=== PATIENT | female | born 1940 | race Caucasian/White ===

== ENCOUNTER 2017-02-09 19:11 | Inpatient (IN) | payer MEDICARE ==
[~2017-02-09] VITALS: Ht 162.6 cm; Wt 57.8 kg
[~2017-02-09 19:11] MED LIST: ACID1TAB7 PO; AMLO5TAB2 PO; ATOR40TA78 PO; BLOOD PRESSURE; DIABETES MED; FENO145T32 PO; INSU100V8 SQ; LISI40TA PO; METF10002 PO; PHEN100C PO
[2017-02-09] MEDS ORDERED: SODIUM CHLORIDE 0.9% 1,000 ML IV ONE (19:28)
[2017-02-09] MEDS ORDERED: SODIUM CHLORIDE FLUSH 10ML SYR IVF ONE (19:30)
[2017-02-09 19:58] LABS: ASPARTATE AMINO TRANSFERASE 16 U/L (15-37); BLOOD UREA NITROGEN 23 mg/dL (7-18)
[2017-02-09 20:24] LABS: IS PT STATUS REG ER OR PRE ER? YES
[2017-02-09] MEDS: SODIUM CHLORIDE 0.9% 1,000 ML IV SCH (21:34)
[2017-02-09] MEDS ORDERED: DEXTROSE 50%, 50ML SYRINGE IVPush PRN (22:00)
[2017-02-09] MEDS ORDERED: PROMETHAZINE 25 MG/ML, 1ML IM PRN (22:00)
[2017-02-09] MEDS ORDERED: GLUCAGON 1 MG IM PRN (22:00)
[2017-02-09] MEDS ORDERED: DEXTROSE 4 GM TAB.CHEW PO PRN (22:00)
[2017-02-09] MEDS ORDERED: ONDANSETRON 2MG/ML, 2ML IVP PRN (22:00)
[2017-02-09] MEDS ORDERED: LABETALOL 5MG/ML, 20ML IV PRN (22:00)
[2017-02-09 22:23] LABS: IS PT STATUS REG ER OR PRE ER? YES
[2017-02-09 22:42] VITALS: BP 184/91
[2017-02-09 23:00] VITALS: BP 149/82
[2017-02-09] MEDS: ENOXAPARIN 40 MG/0.4 ML SQ SCH (23:27)
[2017-02-09] MEDS: PHENYTOIN 100 MG CAPSULE PO SCH (23:56)
[2017-02-10 01:46] VITALS: BP 153/77
[2017-02-10 04:29] LABS: BLOOD UREA NITROGEN 13 mg/dL (7-18)
[2017-02-10 04:35] LABS: IS PT STATUS REG ER OR PRE ER? NO
[2017-02-10 04:40] LABS: ASPARTATE AMINO TRANSFERASE 19 U/L (15-37)
[2017-02-10] MEDS: SODIUM CHLORIDE 0.9% 1,000 ML IV SCH (05:26)
[2017-02-10 06:46] VITALS: BP 173/92
[2017-02-10] MEDS: FENOFIBRATE 145 MG TABLET PO SCH (07:11)
[2017-02-10] MEDS: INSULIN ASPART 100 UNITS/ML, PEN SQ-INSULIN SCH ×4 (07:11→21:00)
[2017-02-10] MEDS: PHENYTOIN 100 MG CAPSULE PO SCH ×3 (07:11→21:21)
[2017-02-10] MEDS: LISINOPRIL 20 MG TABLET PO SCH (07:11)
[2017-02-10] MEDS: AMLODIPINE 5 MG TABLET PO SCH (07:11)
[2017-02-10] MEDS: SODIUM CHLORIDE FLUSH 10ML SYR IVF SCH ×2 (07:12→21:20)
[2017-02-10 15:00] VITALS: BP 149/80
[2017-02-10 19:46] VITALS: BP 147/82
[2017-02-10] MEDS ORDERED: CETIRIZINE 10 MG TABLET PO ONE (20:30)
[2017-02-10] MEDS ORDERED: ATORVASTATIN 40 MG TABLET PO SCH (21:00)
[2017-02-11] MEDS: PHENYTOIN 100 MG CAPSULE PO SCH ×2 (01:12→07:46)
[2017-02-11] MEDS: ENOXAPARIN 40 MG/0.4 ML SQ SCH (01:12)
[2017-02-11 01:13] VITALS: BP 149/79
[2017-02-11 07:00] VITALS: BP 168/94
[2017-02-11] MEDS: LISINOPRIL 20 MG TABLET PO SCH (07:46)
[2017-02-11] MEDS: AMLODIPINE 5 MG TABLET PO SCH (07:46)
[2017-02-11] MEDS: SODIUM CHLORIDE FLUSH 10ML SYR IVF SCH (07:46)
[2017-02-11] MEDS: FENOFIBRATE 145 MG TABLET PO SCH (07:46)
[2017-02-11] MEDS: INSULIN ASPART 100 UNITS/ML, PEN SQ-INSULIN SCH (08:28)
[2017-02-11 09:17] LABS: HEMOGLOBIN 14.1 g/dL (11.7-16.4)
[2017-02-11 09:23] LABS: BLOOD UREA NITROGEN 14 mg/dL (7-18)
== END 2017-02-11 11:20 | disposition home or self-care (01) | DRG 683 ==
LOC: ED 20:58 → EDIP 21:19 → 4EST 22:41
PROVIDERS: ADMIT Internal Medicine; ATTEND Internal Medicine
DX: N17.9 Acute kidney failure, unspecified (principal); E87.1 Hypo-osmolality and hyponatremia; A08.4 Viral intestinal infection, unspecified; E11.65 Type 2 diabetes mellitus with hyperglycemia; R19.7 Diarrhea, unspecified; I16.0 Hypertensive urgency; I10 Essential (primary) hypertension; E78.5 Hyperlipidemia, unspecified; G40.909 Epilepsy, unspecified, not intractable, without status epilepticus; E86.0 Dehydration; Z83.3 Family history of diabetes mellitus; Z90.49 Acquired absence of other specified parts of digestive tract; T38.3X5A Adverse effect of insulin and oral hypoglycemic [antidiabetic] drugs, initial encounter
CPT/HCPCS: 36415; 70450; 71010; 80048; 80053; 80185; 81003; 82962; 83690; 83735; 84295; 84436; 84439; 84443; 84484; 85025; 93005; 96360; 96361; J1650; J1815; J7030

== ENCOUNTER 2017-10-05 09:17 | Inpatient (IN) | payer MEDICARE ==
[~2017-10-05] VITALS: Ht 162.6 cm; Wt 54.9 kg
[2017-10-05] MEDS ORDERED: SODIUM CHLORIDE 0.9% 1,000 ML IV ONE (10:20)
[2017-10-05] MEDS ORDERED: ONDANSETRON 2MG/ML, 2ML IVPush ONE (10:30)
[2017-10-05] MEDS ORDERED: SODIUM CHLORIDE FLUSH 10ML SYR IVF ONE (10:30)
[2017-10-05] MEDS ORDERED: ONDANSETRON 2MG/ML, 2ML ONE (11:05)
[2017-10-05 11:18] LABS: HEMATOCRIT 43.3 % (34.6-47.8); HEMOGLOBIN 15.1 g/dL (11.7-16.4); WHITE BLOOD COUNT 8.7 x10^3/uL (3.4-10)
[2017-10-05 11:29] LABS: ASPARTATE AMINO TRANSFERASE 19 U/L (15-37); BLOOD UREA NITROGEN 9 mg/dL (7-18)
[2017-10-05] MEDS ORDERED: POTASSIUM CHLORIDE 40 MEQ in SODIUM CHLORIDE 0.9% 1,000 ML IV ONE (11:55)
[2017-10-05] MEDS ORDERED: POTASSIUM CHLORIDE 20 MEQ TAB.ER.PRT PO ONE (12:00)
[2017-10-05 12:08] LABS: PATH.CAST-FLAG NOT PRESENT; SPERM-FLAG NOT PRESENT; SRC-FLAG NOT PRESENT; XTAL-FLAG NOT PRESENT; YLC-FLAG NOT PRESENT
[2017-10-05] MEDS ORDERED: POTASSIUM CHLORIDE 20 MEQ TAB.ER.PRT ONE (12:16)
[2017-10-05] MEDS ORDERED: NS + 40MEQ KCL 1,000 ML IV ONE (12:16)
[2017-10-05] MEDS ORDERED: SODIUM CHLORIDE FLUSH 10ML SYR IVF PRN (12:30)
[2017-10-05] MEDS ORDERED: TEMAZEPAM 15 MG CAPSULE PO PRN (13:30)
[2017-10-05] MEDS: LISINOPRIL 20 MG TABLET PO SCH (13:30)
[2017-10-05] MEDS ORDERED: PHENYTOIN 100 MG CAPSULE PO SCH (13:30)
[2017-10-05 13:55] VITALS: BP 173/103
[2017-10-05] MEDS ORDERED: METOCLOPRAMIDE 5 MG/ML, 2ML IVPush ONE (14:30)
[2017-10-05] MEDS: LACTOBACILLUS CHEW TABLET PO SCH ×2 (16:00→20:43)
[2017-10-05] MEDS: PHENYTOIN SODIUM 50 MG/ML, 2ML IVPush SCH ×2 (16:49→23:39)
[2017-10-05] MEDS: ENOXAPARIN 40 MG/0.4 ML SQ SCH (16:54)
[2017-10-05 16:58] VITALS: BP 168/86
[2017-10-05] MEDS: ONDANSETRON 2MG/ML, 2ML IVPush PRN (17:52)
[2017-10-05] MEDS: INSULIN ASPART 100 UNITS/ML, PEN SQ-INSULIN SCH ×2 (17:52→20:43)
[2017-10-05 18:45] LABS: BLOOD UREA NITROGEN 9 mg/dL (7-18)
[2017-10-05] MEDS: NS + 20MEQ KCL 1,000 ML IV SCH (18:45)
[2017-10-05] MEDS ORDERED: MAGNESIUM SULFATE PMX 2GM/50ML 50 ML IV ONE (20:00)
[2017-10-05 20:55] VITALS: BP 163/87
[2017-10-05] MEDS: METOCLOPRAMIDE 5 MG/ML, 2ML IVPush PRN (22:24)
[2017-10-06 01:39] VITALS: BP 145/78
[2017-10-06] MEDS: ONDANSETRON 2MG/ML, 2ML IVPush PRN (04:52)
[2017-10-06] MEDS: NS + 20MEQ KCL 1,000 ML IV SCH ×3 (05:25→20:42)
[2017-10-06 05:34] LABS: BLOOD UREA NITROGEN 10 mg/dL (7-18)
[2017-10-06 05:37] LABS: ASPARTATE AMINO TRANSFERASE 20 U/L (15-37)
[2017-10-06 07:01] VITALS: BP 164/78
[2017-10-06] MEDS: METOCLOPRAMIDE 5 MG/ML, 2ML IVPush PRN (07:28)
[2017-10-06] MEDS: PHENYTOIN SODIUM 50 MG/ML, 2ML IVPush SCH ×3 (07:28→23:47)
[2017-10-06] MEDS: ACETAMINOPHEN 325 MG TABLET PO PRN ×3 (07:28→21:27)
[2017-10-06] MEDS: INSULIN ASPART 100 UNITS/ML, PEN SQ-INSULIN SCH ×4 (07:29→21:28)
[2017-10-06] MEDS: LACTOBACILLUS CHEW TABLET PO SCH ×3 (08:15→21:27)
[2017-10-06] MEDS: LISINOPRIL 20 MG TABLET PO SCH (08:15)
[2017-10-06 15:05] VITALS: BP 161/85
[2017-10-06] MEDS: ENOXAPARIN 40 MG/0.4 ML SQ SCH (16:38)
[2017-10-06 19:56] VITALS: BP 159/87
[2017-10-07 01:22] VITALS: BP 152/80
[2017-10-07] MEDS: ONDANSETRON 2MG/ML, 2ML IVPush PRN (04:20)
[2017-10-07] MEDS: NS + 20MEQ KCL 1,000 ML IV SCH (04:20)
[2017-10-07 04:50] LABS: HEMATOCRIT 36.3 % (34.6-47.8); HEMOGLOBIN 12.5 g/dL (11.7-16.4); WHITE BLOOD COUNT 7.7 x10^3/uL (3.4-10)
[2017-10-07 04:51] LABS: DIFF TOTAL CELLS COUNTED 100 CELL DIFF
[2017-10-07 04:55] LABS: BLOOD UREA NITROGEN 9 mg/dL (7-18)
[2017-10-07 05:45] LABS: VERIFY COUNTS? YES
[2017-10-07] MEDS: INSULIN ASPART 100 UNITS/ML, PEN SQ-INSULIN SCH ×2 (07:48→11:15)
[2017-10-07] MEDS: PHENYTOIN SODIUM 50 MG/ML, 2ML IVPush SCH ×2 (07:48→15:30)
[2017-10-07] MEDS: LACTOBACILLUS CHEW TABLET PO SCH (07:52)
[2017-10-07] MEDS: LISINOPRIL 20 MG TABLET PO SCH (07:53)
[2017-10-07 08:03] VITALS: BP 186/94
[2017-10-07 14:09] VITALS: BP 160/79
[2017-10-07] MEDS ORDERED: ONDA4TAB10 PO (14:35)
== END 2017-10-07 17:05 | disposition home or self-care (01) | DRG 392 ==
LOC: ED 11:35 → EDIP 12:27 → 3NE 14:17
PROVIDERS: ADMIT Internal Medicine; ATTEND Family Medicine
DX: K52.9 Noninfective gastroenteritis and colitis, unspecified (principal); E11.65 Type 2 diabetes mellitus with hyperglycemia; E86.0 Dehydration; E87.1 Hypo-osmolality and hyponatremia; G40.909 Epilepsy, unspecified, not intractable, without status epilepticus; E87.6 Hypokalemia; I10 Essential (primary) hypertension; D25.9 Leiomyoma of uterus, unspecified; Z90.49 Acquired absence of other specified parts of digestive tract; Z88.8 Allergy status to other drugs, medicaments and biological substances
CPT/HCPCS: 36415; 70450; 74022; 80048; 80053; 81001; 82962; 83036; 83690; 83735; 84100; 84484; 85025; 89055; 93005; 96374; J1165; J1650; J1815; J2405; J3480; J2765; J3475; J7030

== ENCOUNTER 2017-11-30 10:45 | Emergency (ER) | payer MEDICARE ==
[~2017-11-30] VITALS: Ht 162.6 cm; Wt 54.6 kg
[~2017-11-30 10:45] MED LIST changes: +ONDA4TAB10 PO
[2017-11-30] MEDS ORDERED: hydrALAzine 20 MG/ML, 1ML ONE (11:29)
[2017-11-30] MEDS ORDERED: hydrALAzine 20 MG/ML, 1ML IV ONE (11:30)
[2017-11-30 11:40] LABS: BASOPHILS # (AUTO) 0.03 x10^3/uL (0-0.1); BASOPHILS % (AUTO) 0 % (0-1); EOSINOPHILS # (AUTO) 0.14 x10^3/uL (0-0.4); EOSINOPHILS % (AUTO) 2 % (1-7); LYMPHOCYTES % (AUTO) 30 % (22-44); MD NO; MEAN CORPUSCULAR HGB CONC 34.3 g/dL (32.4-35.8); MEAN CORPUSCULAR VOLUME 90.5 fL (80-100); MEAN PLATELET VOLUME 8.2 fL (7.4-10.4); MONOCYTES # (AUTO) 0.68 x10^3/uL (0.2-0.8); MONOCYTES % (AUTO) 8 % (2-9); NEUTROPHILS # (AUTO) 5.37 x10^3/uL (1.8-6.8); NEUTROPHILS % (AUTO) 61 % (42-75); PLATELET COUNT 271 x10^3/uL (130-400); RED BLOOD COUNT 4.97 x10^6/uL (3.82-5.3)
[2017-11-30 11:47] LABS: CHLORIDE 100 mmol/L (98-107)
[2017-11-30 11:48] LABS: ALBUMIN 3.8 g/dL (3.4-5.0); ANION GAP 11 mmol/L (5-15); CALCIUM 8.6 mg/dL (8.5-10.1)
[2017-11-30 11:51] LABS: TROPONIN I < 0.015 ng/mL (0.000-0.045)
[2017-11-30 13:30] VITALS: BP 162/85
== END 2017-11-30 13:38 | disposition home or self-care (01) ==
LOC: ED 12:08
DX: I10 Essential (primary) hypertension (principal); E11.9 Type 2 diabetes mellitus without complications
CPT/HCPCS: 36415; 71045; 80048; 82040; 83880; 84484; 85025; 93005; 96374; 99285; J0360

== ENCOUNTER 2018-06-24 19:15 | Emergency (ER) | payer MEDICARE ==
[~2018-06-24] VITALS: Ht 152.4 cm; Wt 56.0 kg
[2018-06-24 19:23] VITALS: BP 164/93
[2018-06-24] MEDS ORDERED: ONDANSETRON 2MG/ML, 2ML IVPush ONE (19:30)
[2018-06-24] MEDS ORDERED: FAMOTIDINE 20 MG/2 ML IVP ONE (19:30)
[2018-06-24 19:59] LABS: BASOPHILS # (AUTO) 0.03 x10^3/uL (0-0.1); BASOPHILS % (AUTO) 0 % (0-1); EOSINOPHILS # (AUTO) 0.27 x10^3/uL (0-0.4); EOSINOPHILS % (AUTO) 3 % (1-7); LYMPHOCYTES % (AUTO) 46 % (22-44); MD NO; MEAN CORPUSCULAR HEMOGLOBIN 31.7 pg (27.0-34.8); MEAN CORPUSCULAR HGB CONC 34.6 g/dL (32.4-35.8); MEAN CORPUSCULAR VOLUME 91.7 fL (80-100); MEAN PLATELET VOLUME 7.7 fL (7.4-10.4); MONOCYTES # (AUTO) 0.82 x10^3/uL (0.2-0.8); MONOCYTES % (AUTO) 10 % (2-9); NEUTROPHILS # (AUTO) 3.18 x10^3/uL (1.8-6.8); NEUTROPHILS % (AUTO) 40 % (42-75); PLATELET COUNT 314 x10^3/uL (130-400); RED BLOOD COUNT 4.17 x10^6/uL (3.82-5.3); RED CELL DISTRIBUTION WIDTH 13.4 % (9.6-15.2)
[2018-06-24] MEDS ORDERED: FAMOTIDINE 20 MG/2 ML ONE (20:06)
[2018-06-24] MEDS ORDERED: ONDANSETRON 2MG/ML, 2ML ONE (20:06)
[2018-06-24 20:10] LABS: ALBUMIN 3.8 g/dL (3.4-5.0); ANION GAP 9 mmol/L (5-15); CALCIUM 8.9 mg/dL (8.5-10.1); CHLORIDE 98 mmol/L (98-107)
[2018-06-24 20:15] LABS: ALANINE AMINOTRANSFERASE 44 U/L (12-78); ALKALINE PHOSPHATASE 71 U/L (45-117); BILIRUBIN,TOTAL 0.4 mg/dL (0.2-1.0); CREATININE 0.75 mg/dL (0.55-1.02); TOTAL PROTEIN 8.1 g/dL (6.4-8.2)
[2018-06-24 21:11] LABS: TROPONIN I < 0.015 ng/mL (0.000-0.045)
== END 2018-06-24 23:11 | disposition home or self-care (01) ==
LOC: ED 21:39
DX: A09 Infectious gastroenteritis and colitis, unspecified (principal); E78.00 Pure hypercholesterolemia, unspecified
CPT/HCPCS: 36415; 80053; 83690; 84484; 85025; 93005; 96374; 96375; 99285; J2405; S0028

== ENCOUNTER 2018-09-11 11:49 | Emergency (ER) | payer MEDICARE ==
[~2018-09-11] VITALS: Ht 152.4 cm; Wt 57.3 kg
[~2018-09-11 11:49] MED LIST changes: -AMLO5TAB2 PO; +AMLO5TAB7 PO
[2018-09-11 12:55] LABS: BASOPHILS # (AUTO) 0.02 x10^3/uL (0-0.1); BASOPHILS % (AUTO) 0 % (0-1); EOSINOPHILS # (AUTO) 0.26 x10^3/uL (0-0.4); EOSINOPHILS % (AUTO) 4 % (1-7); LYMPHOCYTES # (AUTO) 3.07 x10^3/uL (1-3.4); LYMPHOCYTES % (AUTO) 42 % (22-44); MD NO; MEAN CORPUSCULAR HEMOGLOBIN 31.5 pg (27.0-34.8); MEAN CORPUSCULAR HGB CONC 34.3 g/dL (32.4-35.8); MONOCYTES # (AUTO) 0.62 x10^3/uL (0.2-0.8); MONOCYTES % (AUTO) 9 % (2-9); NEUTROPHILS # (AUTO) 3.34 x10^3/uL (1.8-6.8); NEUTROPHILS % (AUTO) 46 % (42-75); PLATELET COUNT 307 x10^3/uL (130-400); RED CELL DISTRIBUTION WIDTH 13.6 % (9.6-15.2)
[2018-09-11 12:59] LABS: ALBUMIN 3.6 g/dL (3.4-5.0); ANION GAP 11 mmol/L (5-15); CALCIUM 8.6 mg/dL (8.5-10.1); CHLORIDE 104 mmol/L (98-107)
[2018-09-11 13:05] LABS: ALANINE AMINOTRANSFERASE 28 U/L (12-78); ALKALINE PHOSPHATASE 65 U/L (45-117); BILIRUBIN,TOTAL 0.3 mg/dL (0.2-1.0); CREATININE 0.79 mg/dL (0.55-1.02); TOTAL PROTEIN 8.1 g/dL (6.4-8.2); TROPONIN I < 0.015 ng/mL (0.000-0.045)
[2018-09-11 13:44] VITALS: BP 158/92
== END 2018-09-11 14:04 | disposition home or self-care (01) ==
LOC: ED 13:58
DX: J20.8 Acute bronchitis due to other specified organisms (principal); B34.8 Other viral infections of unspecified site; E11.9 Type 2 diabetes mellitus without complications; I10 Essential (primary) hypertension; N19 Unspecified kidney failure; E78.00 Pure hypercholesterolemia, unspecified; Z98.890 Other specified postprocedural states; Z90.49 Acquired absence of other specified parts of digestive tract
CPT/HCPCS: 36415; 71046; 80053; 83880; 84484; 85025; 93005; 99285

== ENCOUNTER 2018-11-04 08:06 | Emergency (ER) | payer MEDICARE ==
[~2018-11-04] VITALS: Ht 157.5 cm; Wt 54.7 kg
[~2018-11-04 08:06] MED LIST changes: +AMLO-150 PO; -AMLO5TAB7 PO
[2018-11-04 08:38] VITALS: BP 105/42
[2018-11-04 08:48] LABS: BASOPHILS # (AUTO) 0.01 x10^3/uL (0-0.1); BASOPHILS % (AUTO) 0 % (0-1); EOSINOPHILS # (AUTO) 0.02 x10^3/uL (0-0.4); EOSINOPHILS % (AUTO) 0 % (1-7); LYMPHOCYTES # (AUTO) 1.59 x10^3/uL (1-3.4); LYMPHOCYTES % (AUTO) 20 % (22-44); MD NO; MEAN CORPUSCULAR HEMOGLOBIN 31.5 pg (27.0-34.8); MEAN CORPUSCULAR HGB CONC 34.4 g/dL (32.4-35.8); MEAN CORPUSCULAR VOLUME 91.5 fL (80-100); MEAN PLATELET VOLUME 8.5 fL (7.4-10.4); MONOCYTES # (AUTO) 0.31 x10^3/uL (0.2-0.8); MONOCYTES % (AUTO) 4 % (2-9); NEUTROPHILS # (AUTO) 5.89 x10^3/uL (1.8-6.8); NEUTROPHILS % (AUTO) 75 % (42-75); PLATELET COUNT 241 x10^3/uL (130-400); RED BLOOD COUNT 3.86 x10^6/uL (3.82-5.3)
[2018-11-04 09:00] LABS: ALANINE AMINOTRANSFERASE 22 U/L (12-78); ALBUMIN 3.4 g/dL (3.4-5.0); ANION GAP 12 mmol/L (5-15); CALCIUM 8.5 mg/dL (8.5-10.1); CHLORIDE 96 mmol/L (98-107); CREATININE 1.19 mg/dL (0.55-1.02)
[2018-11-04 09:03] LABS: ALKALINE PHOSPHATASE 79 U/L (45-117); BILIRUBIN,TOTAL 0.4 mg/dL (0.2-1.0); TOTAL PROTEIN 7.3 g/dL (6.4-8.2)
== END 2018-11-04 09:42 | disposition home or self-care (01) ==
LOC: ED 08:33
DX: K92.1 Melena (principal); E11.9 Type 2 diabetes mellitus without complications; I10 Essential (primary) hypertension; E78.00 Pure hypercholesterolemia, unspecified
CPT/HCPCS: 36415; 80053; 83690; 85025; 93005; 99284

== ENCOUNTER 2018-12-20 10:03 | Emergency (ER) | payer MEDICARE ==
[~2018-12-20] VITALS: Ht 152.4 cm; Wt 56.2 kg
[2018-12-20 10:06] VITALS: BP 172/95
--- NOTE | 2018-12-20 10:53 | NUR ---
FROM LOBBY TO ROOM AT THIS TIME
[2018-12-20 10:55] LABS: BASOPHILS # (AUTO) 0.03 x10^3/uL (0-0.1); BASOPHILS % (AUTO) 0 % (0-1); EOSINOPHILS % (AUTO) 1 % (1-7); LYMPHOCYTES # (AUTO) 2.26 x10^3/uL (1-3.4); LYMPHOCYTES % (AUTO) 31 % (22-44); MD NO; MEAN CORPUSCULAR HEMOGLOBIN 31.5 pg (27.0-34.8); MEAN CORPUSCULAR HGB CONC 34.5 g/dL (32.4-35.8); MEAN CORPUSCULAR VOLUME 91.1 fL (80-100); MEAN PLATELET VOLUME 8.4 fL (7.4-10.4); MONOCYTES % (AUTO) 7 % (2-9); NEUTROPHILS # (AUTO) 4.32 x10^3/uL (1.8-6.8); NEUTROPHILS % (AUTO) 60 % (42-75); PLATELET COUNT 299 x10^3/uL (130-400); RED BLOOD COUNT 4.63 x10^6/uL (3.82-5.3); RED CELL DISTRIBUTION WIDTH 12.6 % (9.6-15.2)
--- NOTE | 2018-12-20 11:02 | NUR ---
PT TO ED FOR EPIGASTRIC ABD PAIN X2 WEEKS. LBM TODAY. MILD NAUSEA, NO VOMITING. NO BLOOD IN STOOL. CONNECTED TO MONITORS. VSS. CALL LIGHT WITHIN REACH. NO NEEDS AT THIS TIME. AWAITING LAB RESULTS AND MD ASSESSMENT.
[2018-12-20 11:09] LABS: ALANINE AMINOTRANSFERASE 23 U/L (12-78); ALBUMIN 3.4 g/dL (3.4-5.0); ANION GAP 10 mmol/L (5-15); CHLORIDE 97 mmol/L (98-107); CREATININE 1.19 mg/dL (0.55-1.02)
[2018-12-20 11:13] LABS: ALKALINE PHOSPHATASE 78 U/L (45-117); BILIRUBIN,TOTAL 0.4 mg/dL (0.2-1.0); TOTAL PROTEIN 8.1 g/dL (6.4-8.2); TROPONIN I 0.015 ng/mL (0.000-0.045)
--- NOTE | 2018-12-20 11:18 | NUR ---
ALL RESULTS BACK AT THIS TIME. CHART UP FOR RECHECK.
== END 2018-12-20 13:22 | disposition home or self-care (01) ==
LOC: ED 12:05
DX: K29.00 Acute gastritis without bleeding (principal); Z90.49 Acquired absence of other specified parts of digestive tract; E11.9 Type 2 diabetes mellitus without complications; I10 Essential (primary) hypertension; E78.00 Pure hypercholesterolemia, unspecified
CPT/HCPCS: 36415; 71046; 80053; 83690; 83880; 84484; 85025; 93005; 99284

== ENCOUNTER 2019-02-27 13:18 | Emergency (ER) | payer MEDICARE, MEDICAID ==
[~2019-02-27] VITALS: Ht 152.4 cm; Wt 58.0 kg
[2019-02-27 13:28] VITALS: BP 157/78
[2019-02-27 14:27] LABS: BASOPHILS # (AUTO) 0.04 x10^3/uL (0-0.1); BASOPHILS % (AUTO) 0 % (0-1); EOSINOPHILS # (AUTO) 0.19 x10^3/uL (0-0.4); EOSINOPHILS % (AUTO) 2 % (1-7); LYMPHOCYTES # (AUTO) 3.07 x10^3/uL (1-3.4); LYMPHOCYTES % (AUTO) 32 % (22-44); MD NO; MEAN CORPUSCULAR HEMOGLOBIN 30.3 pg (27.0-34.8); MEAN CORPUSCULAR HGB CONC 34.6 g/dL (32.4-35.8); MEAN CORPUSCULAR VOLUME 87.7 fL (80-100); MEAN PLATELET VOLUME 8.4 fL (7.4-10.4); MONOCYTES # (AUTO) 0.88 x10^3/uL (0.2-0.8); MONOCYTES % (AUTO) 9 % (2-9); NEUTROPHILS % (AUTO) 57 % (42-75); PLATELET COUNT 249 x10^3/uL (130-400); RED BLOOD COUNT 4.66 x10^6/uL (3.82-5.3); RED CELL DISTRIBUTION WIDTH 14.1 % (9.6-15.2)
[2019-02-27 14:35] LABS: ALANINE AMINOTRANSFERASE 32 U/L (12-78); ALBUMIN 3.8 g/dL (3.4-5.0); ANION GAP 10 mmol/L (5-15); CALCIUM 9.1 mg/dL (8.5-10.1); CHLORIDE 99 mmol/L (98-107); CREATININE 1.53 mg/dL (0.55-1.02)
[2019-02-27 14:40] LABS: ALKALINE PHOSPHATASE 72 U/L (45-117); BILIRUBIN,TOTAL 0.4 mg/dL (0.2-1.0); TOTAL PROTEIN 8.1 g/dL (6.4-8.2)
[2019-02-27 15:48] LABS: HEMOGLOBIN A1C 8.9 % (4.2-6.3)
== END 2019-02-27 16:52 | disposition home or self-care (01) ==
LOC: ED 14:37
DX: M79.605 Pain in left leg (principal); M79.604 Pain in right leg; R20.0 Anesthesia of skin; E11.9 Type 2 diabetes mellitus without complications; I10 Essential (primary) hypertension; E78.5 Hyperlipidemia, unspecified; E78.00 Pure hypercholesterolemia, unspecified; Z90.49 Acquired absence of other specified parts of digestive tract; Z98.890 Other specified postprocedural states
CPT/HCPCS: 36415; 71045; 80053; 82330; 83036; 83735; 83880; 85025; 93970; 99284

== ENCOUNTER 2019-11-03 08:52 | Emergency (ER) | payer MEDICARE, MEDICAID ==
[~2019-11-03] VITALS: Ht 162.6 cm; Wt 56.0 kg
--- NOTE | 2019-11-03 09:22 | NUR ---
FIRST CONTACT WITH PT. HX HTN AND DIABETIC OUT OF MEDS FOR ONE MONTH BG 171 AT THIS TIME. PT DENIES ANY PAIN/PHYSICAL SYMPTOMS. PT'S AOX4. RESPS EVEN AND UNLABORED. PT'S FRIEND AT BEDSIDE. BP/SPO2 MONITORS IN PLACE. CALL LIGHT WITHIN REACH.
[2019-11-03 10:02] LABS: ALBUMIN 3.8 g/dL (3.4-5.0); ANION GAP 8 mmol/L (5-15); CALCIUM 9.6 mg/dL (8.5-10.1); CHLORIDE 103 mmol/L (98-107); CREATININE 0.93 mg/dL (0.55-1.02)
--- NOTE | 2019-11-03 10:10 | NUR ---
PT RESTING IN [facility]. PT'S AOX4. RESPS EVEN AND UNLABORED.
[2019-11-03 10:18] LABS: BASOPHILS # (AUTO) 0.06 x10^3/uL (0-0.1); BASOPHILS % (AUTO) 1 % (0-1); EOSINOPHILS % (AUTO) 4 % (1-7); LYMPHOCYTES # (AUTO) 2.19 x10^3/uL (1-3.4); LYMPHOCYTES % (AUTO) 30 % (22-44); MD NO; MEAN CORPUSCULAR HEMOGLOBIN 30.7 pg (27.0-34.8); MEAN CORPUSCULAR HGB CONC 33.4 g/dL (32.4-35.8); MEAN CORPUSCULAR VOLUME 91.7 fL (80-100); MEAN PLATELET VOLUME 8.4 fL (7.4-10.4); MONOCYTES # (AUTO) 0.66 x10^3/uL (0.2-0.8); MONOCYTES % (AUTO) 9 % (2-9); NEUTROPHILS # (AUTO) 4.01 x10^3/uL (1.8-6.8); NEUTROPHILS % (AUTO) 56 % (42-75); PLATELET COUNT 281 x10^3/uL (130-400); RED BLOOD COUNT 4.84 x10^6/uL (3.82-5.3); RED CELL DISTRIBUTION WIDTH 13.3 % (9.6-15.2)
[2019-11-03 11:07] VITALS: BP 173/91
--- NOTE | 2019-11-03 11:19 | NUR ---
Patient given discharge instructions and they have confirmed that they understand the instructions. Patient ambulatory with steady gait.
== END 2019-11-03 11:20 | disposition home or self-care (01) ==
LOC: ED 10:16
DX: I10 Essential (primary) hypertension (principal); Z76.0 Encounter for issue of repeat prescription; R53.1 Weakness; E78.5 Hyperlipidemia, unspecified; E11.9 Type 2 diabetes mellitus without complications; E78.00 Pure hypercholesterolemia, unspecified; Z90.49 Acquired absence of other specified parts of digestive tract
CPT/HCPCS: 36415; 80048; 82040; 82962; 85025; 99283

== ENCOUNTER 2019-12-02 10:45 | Emergency (ER) | payer MEDICARE, MEDICAID ==
[~2019-12-02] VITALS: Ht 152.4 cm; Wt 56.1 kg
[2019-12-02 10:47] VITALS: BP 131/74
--- NOTE | 2019-12-02 10:57 | NUR ---
PT HERE FOR RX REFILL. STATES HER PHYSICIAN IS HOLISTIC AND WON'T GIVE HER MEDICINE. AMLODIPINE AND LISINOPRIL; HAS TWO DAYS LEFT OF MEDICATIONS.
[2019-12-02] MEDS ORDERED: LISI-420 PO (11:03)
[2019-12-02] MEDS ORDERED: INSU100I13 SQ (11:04)
--- NOTE | 2019-12-02 11:23 | NUR ---
[facility] PRIMARY CARE PROVIDER LIST GIVEN TO PT.
== END 2019-12-02 11:26 | disposition home or self-care (01) ==
LOC: ED 11:20
DX: I10 Essential (primary) hypertension (principal); Z76.0 Encounter for issue of repeat prescription; E11.9 Type 2 diabetes mellitus without complications; E78.00 Pure hypercholesterolemia, unspecified; Z90.49 Acquired absence of other specified parts of digestive tract
CPT/HCPCS: 99283

== ENCOUNTER 2020-06-20 12:03 | Emergency (ER) | payer MEDICARE, MEDICAID ==
[~2020-06-20] VITALS: Ht 152.4 cm; Wt 55.7 kg
[~2020-06-20 12:03] MED LIST changes: +INSU100I13 SQ; +LISI-420 PO
[2020-06-20] MEDS ORDERED: ACETAMINOPHEN 325 MG TABLET ONE (12:41)
[2020-06-20 12:54] LABS: BASOPHILS # (AUTO) 0.03 x10^3/uL (0-0.1); BASOPHILS % (AUTO) 0 % (0-1); EOSINOPHILS # (AUTO) 0.31 x10^3/uL (0-0.4); EOSINOPHILS % (AUTO) 4 % (1-7); LYMPHOCYTES # (AUTO) 2.42 x10^3/uL (1-3.4); LYMPHOCYTES % (AUTO) 32 % (22-44); MD NO; MEAN CORPUSCULAR VOLUME 94.2 fL (80-100); MEAN PLATELET VOLUME 7.9 fL (7.4-10.4); MONOCYTES # (AUTO) 0.64 x10^3/uL (0.2-0.8); MONOCYTES % (AUTO) 8 % (2-9); NEUTROPHILS # (AUTO) 4.27 x10^3/uL (1.8-6.8); NEUTROPHILS % (AUTO) 56 % (42-75); PLATELET COUNT 263 x10^3/uL (130-400); RED BLOOD COUNT 4.34 x10^6/uL (3.82-5.3); RED CELL DISTRIBUTION WIDTH 12.8 % (9.6-15.2)
[2020-06-20] MEDS ORDERED: ACETAMINOPHEN 325 MG TABLET PO ONE (13:00)
[2020-06-20 13:04] LABS: ALBUMIN 3.5 g/dL (3.4-5.0); ANION GAP 7 mmol/L (5-15); CALCIUM 8.7 mg/dL (8.5-10.1); CHLORIDE 105 mmol/L (98-107); CREATININE 0.87 mg/dL (0.55-1.02)
[2020-06-20 13:07] LABS: TROPONIN I < 0.015 ng/mL (0.000-0.045)
--- NOTE | 2020-06-20 13:10 | NUR ---
PT IN HOSPITAL GOWN. CARDIAC AND VITALS MONITORS IN PLACE. PT ABLE TO AMBULATE TO BATHROOM STEADILY TO PROVIDE URINE SAMPLE. URINE WALKED TO LAB. EKG DONE. PT CURRENTLY RESTING IN BED. NO STATED NEEDS. WILL CONTINUE TO MONITOR. PT HAS BEEN MEDICATED WITH ORDERED MED FOR COUCH. CALL LIGHT WITHIN REACH.
--- NOTE | 2020-06-20 13:15 | NUR ---
PT GOING FOR CT NOW.
[2020-06-20 13:20] LABS: MICROSCOPIC AUTO
--- NOTE | 2020-06-20 13:39 | NUR ---
ALL RESULTS BACK. PT UP FOR RECHECK
[2020-06-20 13:48] VITALS: BP 173/87
--- NOTE | 2020-06-20 14:17 | NUR ---
BREAK RN: PT WALKED DOWN [facility] WITH THIS NURSE, NO ASSISTANCE NECESSARY. PT TOLERATED WITHOUT ISSUE, DENIES ANY NEEDS OR CONCERNS. PT EXPRESSES READINESS TO BE DISCHARGED.
== END 2020-06-20 14:20 | disposition home or self-care (01) ==
LOC: ED 13:13
DX: I10 Essential (primary) hypertension (principal); R53.1 Weakness; R07.89 Other chest pain; R51 Headache; E78.5 Hyperlipidemia, unspecified; E11.9 Type 2 diabetes mellitus without complications; E78.00 Pure hypercholesterolemia, unspecified
CPT/HCPCS: 36415; 70450; 71045; 80048; 81001; 82040; 84484; 85025; 93005; 99285

== ENCOUNTER 2021-02-20 11:15 | Emergency (ER) | payer MEDICARE ==
[~2021-02-20] VITALS: Ht 152.4 cm; Wt 54.5 kg
[~2021-02-20 11:15] MED LIST changes: -LISI-420 PO; +LISI20TA21 PO; -LISI40TA PO; +LISI40TA9 PO
--- NOTE | 2021-02-20 11:26 | NUR ---
Attempted to complete pt's med rec, she states she does not know the names of her medications.
--- NOTE | 2021-02-20 11:36 | NUR ---
PT RESTING COMFORTABLY ON AN E.R. GURNEY WHILE AWAITING AN MD TO ASSESS HER. PRIMARY COMPLAINT OF FATIGUE, AND RECENT LABWORK SHOWS ELEVATED BLOOD GLUCOSE.
[2021-02-20 12:25] LABS: BASOPHILS % (AUTO) 1 % (0-1); EOSINOPHILS % (AUTO) 2 % (1-7); LYMPHOCYTES % (AUTO) 33 % (22-44); MEAN CORPUSCULAR HEMOGLOBIN 32.5 pg (27.0-34.8); MEAN PLATELET VOLUME 8.1 fL (7.4-10.4); MONOCYTES % (AUTO) 8 % (2-9); NEUTROPHILS % (AUTO) 56 % (42-75); PLATELET COUNT 264 x10^3/uL (130-400); RED BLOOD COUNT 4.63 x10^6/uL (3.82-5.3); RED CELL DISTRIBUTION WIDTH 13.2 % (9.6-15.2)
[2021-02-20 12:36] LABS: ANION GAP 6 mmol/L (5-15); CALCIUM 8.7 mg/dL (8.5-10.1); CHLORIDE 97 mmol/L (98-107)
[2021-02-20 12:37] LABS: CREATININE 1.07 mg/dL (0.55-1.02)
[2021-02-20] MEDS ORDERED: INSULIN REGULAR 100 UNITS/ML, 3ML VIAL SQ-INSULIN ONE (13:00)
--- NOTE | 2021-02-20 13:09 | NUR ---
AMBULATORY TO [facility] BR W/ STEADY GAIT
--- NOTE | 2021-02-20 13:14 | NUR ---
RETURNED TO ROOM W/OUT INCIDENT. CURRENTLY GETTING DRESSED FOR DC. FBS RECHECK: 292
[2021-02-20] MEDS ORDERED: INSULIN SINGLE DOSE, ER ONE ×2 (13:18→13:19)
--- NOTE | 2021-02-20 13:21 | NUR ---
CONSULTED DR SRINIVASAN RE: CURRENT FBS AND INSULIN ORDER. INSULIN TO BE GIVEN ORDERED. INSULIN ORDERED FROM PHARMACY
--- NOTE | 2021-02-20 13:42 | NUR ---
INSULIN GIVEN PER EMAR. PT REFUSED TO WAIT FOR DC DOCUMENTS. AMBULATORY TO DISCHARGE DESK W/ STEADY GAIT.
[2021-02-20 13:43] VITALS: BP 178/86
[2021-04-26] MEDS ORDERED: INSU100I28 INJ (13:05)
[2021-04-28] MEDS ORDERED: ASPI-963 PO (11:43)
[2021-04-28] MEDS ORDERED: ATOR-2 PO (11:43)
[2021-04-28] MEDS ORDERED: INSU100I13 SQ-INSULIN (11:43)
[2021-04-28] MEDS ORDERED: CLOP75TA PO (11:43)
[2021-04-28] MEDS ORDERED: CARV12.52 PO (11:43)
== END 2021-02-20 13:44 | disposition home or self-care (01) ==
LOC: ED 12:47
DX: E11.65 Type 2 diabetes mellitus with hyperglycemia (principal); I10 Essential (primary) hypertension; E78.5 Hyperlipidemia, unspecified; Z90.49 Acquired absence of other specified parts of digestive tract
CPT/HCPCS: 36415; 80048; 82962; 85025; 99283; J1815

== ENCOUNTER 2021-05-25 13:48 | Emergency (ER) | payer MEDICARE ==
[~2021-05-25] VITALS: Ht 152.4 cm; Wt 54.7 kg
[~2021-05-25 13:48] MED LIST changes: +ASPI-963 PO; +ATOR-2 PO; +CARV12.52 PO; +CLOP75TA PO; +INSU100I13 SQ-INSULIN; +INSU100I28 INJ
[2021-05-25 16:52] VITALS: BP 135/63
== END 2021-05-25 17:16 | disposition home or self-care (01) ==
LOC: ED 14:53
DX: M79.662 Pain in left lower leg (principal); R51.9 Headache, unspecified; I10 Essential (primary) hypertension; E11.9 Type 2 diabetes mellitus without complications; E78.5 Hyperlipidemia, unspecified; E78.00 Pure hypercholesterolemia, unspecified; Z90.49 Acquired absence of other specified parts of digestive tract; Z88.5 Allergy status to narcotic agent
CPT/HCPCS: 99284

== ENCOUNTER 2021-06-21 16:27 | Emergency (ER) | payer MEDICARE ==
[~2021-06-21] VITALS: Ht 160 cm; Wt 53.1 kg
--- NOTE | 2021-06-21 17:08 | NUR ---
Pt ambulatory with steady gait from triage to room with potato grader. Pt changing into gown.
--- NOTE | 2021-06-21 17:13 | NUR ---
Pt given clean catch instructions for UA sample and she walked across the steiner to the restroom.
--- NOTE | 2021-06-21 17:43 | NUR ---
cooking appliance repair technician at bedside for draw.
[2021-06-21 17:46] LABS: MICROSCOPIC AUTO
--- NOTE | 2021-06-21 18:07 | NUR ---
Noted additional lab orders and a head CT added by MD at this time. Other labs already drawn still pending results. CXR and UA results reviewed.
[2021-06-21 18:11] LABS: ALBUMIN 3.7 g/dL (3.4-5.0); ANION GAP 6 mmol/L (5-15); CALCIUM 8.5 mg/dL (8.5-10.1); CHLORIDE 99 mmol/L (98-107)
[2021-06-21 18:13] LABS: BASOPHILS % (AUTO) 0 % (0-1); CREATININE 1.09 mg/dL (0.55-1.02); EOSINOPHILS % (AUTO) 1 % (1-7); LYMPHOCYTES % (AUTO) 29 % (22-44); MEAN CORPUSCULAR HEMOGLOBIN 31.3 pg (27.0-34.8); MEAN CORPUSCULAR HGB CONC 34.9 g/dL (32.4-35.8); MEAN PLATELET VOLUME 8.7 fL (7.4-10.4); MONOCYTES % (AUTO) 8 % (2-9); NEUTROPHILS % (AUTO) 62 % (42-75); PLATELET COUNT 248 x10^3/uL (130-400); RED BLOOD COUNT 4.12 x10^6/uL (3.82-5.3); RED CELL DISTRIBUTION WIDTH 12.8 % (9.6-15.2)
[2021-06-21 18:32] LABS: ALBUMIN 3.7 g/dL (3.4-5.0); BILIRUBIN, DIRECT 0.1 mg/dL (0.1-0.2)
[2021-06-21 18:35] LABS: BILIRUBIN,INDIRECT 0.3 mg/dL (0.0-2.0); BILIRUBIN,TOTAL 0.4 mg/dL (0.2-1.0); TOTAL PROTEIN 8.1 g/dL (6.4-8.2)
--- NOTE | 2021-06-21 18:43 | NUR ---
pt son: lala [phone]
[2021-06-21 18:54] LABS: TROPONIN I < 0.015 ng/mL (0.000-0.045)
--- NOTE | 2021-06-21 19:00 | NUR ---
Spoke with pt's son via telephone after receiving verbal permission from pt to call him back with an update. Pt assisted to restroom and back to bed. Pt awaiting Troponin level to result before MD can come speak with her about findings and suggested plan of care.
[2021-06-21] MEDS ORDERED: ONDANSETRON 2MG/ML, 2ML IVPush ONE (19:30)
[2021-06-21] MEDS ORDERED: SODIUM CHLORIDE 0.9% 1,000ML IVBOLUS ONE (19:30)
[2021-06-21] MEDS ORDERED: ONDANSETRON 2MG/ML, 2ML ONE (19:37)
--- NOTE | 2021-06-21 19:43 | NUR ---
IV started and Zofran given for nausea. VS reassessed. orthodontic lab technician stated he would return shortly after IV start.
--- NOTE | 2021-06-21 19:53 | NUR ---
Pt being taken to CT at this time.
--- NOTE | 2021-06-21 20:04 | NUR ---
Pt back to room from CT with 200mL infused of 500mL bolus. No acute changes while off unit.
[2021-06-21] MEDS ORDERED: OMNIPAQUE 350 MG/ML, 100ML BOTTLE ONE (20:16)
--- NOTE | 2021-06-21 20:57 | NUR ---
Pt back in room from restroom, IVF reattached for completion of 500mL bolus, and report given to MARII Yeung with care transferred.
[2021-06-21] MEDS ORDERED: POTASSIUM CHLORIDE 20 MEQ TAB.ER.PRT PO ONE (21:30)
[2021-06-21] MEDS ORDERED: MAALOX/HYOSCYAMINE/LIDOCAINE 45 ML BTL PO ONE (21:30)
[2021-06-21] MEDS ORDERED: MAALOX/HYOSCYAMINE/LIDOCAINE 45 ML BTL ONE (21:41)
[2021-06-21] MEDS ORDERED: POTASSIUM CHLORIDE 20 MEQ TAB.ER.PRT ONE (21:41)
[2021-06-21 21:44] VITALS: BP 165/76
== END 2021-06-21 21:47 | disposition home or self-care (01) ==
LOC: ED 21:12
DX: R11.2 Nausea with vomiting, unspecified (principal); E86.0 Dehydration; E87.6 Hypokalemia; R10.30 Lower abdominal pain, unspecified; R53.1 Weakness
CPT/HCPCS: 36415; 70450; 71045; 74177; 80048; 80076; 81001; 82040; 83690; 84484; 85025; 93005; 96361; 96374; 99285; J2405; J7030; Q9967

== ENCOUNTER 2021-07-31 07:18 | Emergency (ER) | payer MEDICARE ==
[~2021-07-31] VITALS: Ht 152.4 cm; Wt 53.0 kg
[2021-07-31] MEDS ORDERED: ONDANSETRON ODT 4 MG PO ONE (07:30)
[2021-07-31] MEDS ORDERED: LOSA50TA14 PO (07:37)
[2021-07-31] MEDS ORDERED: POT CL MICRO PO (07:37)
[2021-07-31] MEDS ORDERED: AMLO-211 PO (07:37)
[2021-07-31] MEDS ORDERED: HYDR12.517 PO (07:37)
[2021-07-31] MEDS ORDERED: OMEP-110 PO (07:37)
[2021-07-31] MEDS ORDERED: FENO160T PO (07:37)
[2021-07-31] MEDS ORDERED: ONDANSETRON ODT 4 MG ONE (07:40)
--- NOTE | 2021-07-31 07:41 | NUR ---
GLOST KILN OPERATOR: PT MED NOTED FOR NAUSEA. URINE CUP GIVEN
[2021-07-31 08:11] LABS: MICROSCOPIC AUTO
[2021-07-31 08:25] LABS: BASOPHILS % (AUTO) 1 % (0-1); EOSINOPHILS % (AUTO) 4 % (1-7); LYMPHOCYTES % (AUTO) 26 % (22-44); MEAN CORPUSCULAR HEMOGLOBIN 30.6 pg (27.0-34.8); MEAN CORPUSCULAR HGB CONC 34.5 g/dL (32.4-35.8); MONOCYTES % (AUTO) 9 % (2-9); NEUTROPHILS % (AUTO) 61 % (42-75); PLATELET COUNT 346 x10^3/uL (130-400); RED BLOOD COUNT 4.46 x10^6/uL (3.82-5.3); RED CELL DISTRIBUTION WIDTH 13.5 % (9.6-15.2)
[2021-07-31 08:32] LABS: ALBUMIN 3.9 g/dL (3.4-5.0); ANION GAP 7 mmol/L (5-15); CALCIUM 9.5 mg/dL (8.5-10.1); CHLORIDE 98 mmol/L (98-107); CREATININE 1.16 mg/dL (0.55-1.02)
--- NOTE | 2021-07-31 11:50 | NUR ---
PT AMBULATED STEADILY TO ROOM FROM [facility], CHANGED INTO GOWN, BRUNEIAN SPEAKING BUT RESPONDS APPROP TO STAFF, NAD, COMFORT MEASURES PROVIDED, CALL LIGHT WITHIN REACH.
[2021-07-31] MEDS ORDERED: POTASSIUM CHLORIDE 20 MEQ TAB.ER.PRT ONE (12:19)
[2021-07-31] MEDS ORDERED: POTASSIUM CHLORIDE 20 MEQ TAB.ER.PRT PO ONE (12:30)
[2021-07-31 12:47] VITALS: BP 140/69
--- NOTE | 2021-07-31 12:48 | NUR ---
Patient given discharge instructions and they have confirmed that they understand the instructions. Patient ambulatory with steady gait.
== END 2021-07-31 12:56 | disposition home or self-care (01) ==
LOC: ED 07:24
DX: R11.2 Nausea with vomiting, unspecified (principal); R19.7 Diarrhea, unspecified; R12 Heartburn; I10 Essential (primary) hypertension; E11.9 Type 2 diabetes mellitus without complications; Z20.822 Contact with and (suspected) exposure to COVID-19
CPT/HCPCS: 36415; 80048; 81001; 82040; 85025; 87086; 99283; Q0162; U0003; U0005